=== PATIENT | female | born 1970 | race Caucasian/White ===

== ENCOUNTER → 2017-05-10 16:46 | Outpatient (CLI) | payer OTHER, SELFPAY ==
--- NOTE | 2017-05-10 16:55 | XR_ITS ---
XR shoulder RT min 2V Ordering Physician: Bon Welch MD Patient Age: 46 years: Female HISTORY: ITS.REASON: RT. SHOULDER PAIN TECHNIQUE: 3 views right shoulder COMPARISON : FINDINGS Glenohumeral joint is intact. Humeral head and neck intact. AC joint intact with scant if any degenerative changes. No fracture nor dislocation. Right lung apex is clear. Right upper ribs satisfactory. IMPRESSION: --------- Right shoulder intact. No fracture nor dislocation
== END ==
PROVIDERS: PCP Family Medicine; Visit Provider Orthopaedic Surgery
DX: M25.511 Pain in right shoulder (principal)
CPT/HCPCS: 73030

== ENCOUNTER 2017-06-23 15:00 | Outpatient (RCR) | payer OTHER, SELFPAY ==
--- NOTE | 2017-06-06 18:25 | HMH.PTOPEV ---
Rehab Outpatient Evaluation Rehab OP Evaluation Start: 06/06/17 17:12 Freq: Status: Active Protocol: Document 06/06/17 17:12 GILBERT (Rec: 06/06/17 18:18 GILBERT [id number]) Electronically Signed By Natan Amin, PT 06/06/17 17:12 Outpatient Therapy Subjective History Subjective History Ms. Joel is a 46 year old female who presents to outpatient PT with reports of R shoulder pain. Signs and symptoms consistent with R RTC impingement syndrome. Pt. reported of slipping and hitting her R shoulder on the wall in the shower October, creating the pain. PMH include gallbladder sx. and a concussion in which she is prescribed topiramate. Pt. will benefit from skilled PT services on posutral correction, shoulder strengthening, scapular stabilization, and pain modulation modalities. Pt. goals are to return to PLOF. Chief Complaint Pain Symptom Type Sharp Stabbing Burning Symptoms Relieved By Rest/Positioning Heat Symptoms Aggravated By Physical Activity Lifting Prior Functional Limitations None Current Functional Limitations Reaching Housework Dressing Driving Sleeping Recreation Activity Symptom Description Activity Dependent Level of pain today (0-10) 0 Pain scale - at its best (0-10) 0 Pain scale - at its worst (0-10) 4 Shoulder/Elbow Eval Shoulder Objective Measurements Palpation Tenderness tenderness shoulder exam standard right tenderness over the SA bursa shoulder right exam standard Shoulder Palpation Findings Tenderness Shoulder Palpation Overall Comment +TTP R supraspinatus/ infraspinatus muscle belly/ tendon, R greater tubercle Posture Shoulder Posture Sitting Position (L) Rounded (R) Rounded (L) Forward (R) Forward (L) Elevated
== END 2017-06-23 15:01 | disposition home or self-care (01) ==
LOC: PT 15:00
PROVIDERS: Family Provider Family Medicine; PCP Family Medicine; Visit Provider Orthopaedic Surgery
DX: M75.41 Impingement syndrome of right shoulder (principal)
CPT/HCPCS: 97010; 97012; 97014; 97016; 97033; 97035; 97110; 97140; G0283

== ENCOUNTER → 2019-07-22 14:12 | Outpatient (CLI) | payer OTHER, SELFPAY ==
--- NOTE | 2019-07-22 14:31 | MR_ITS ---
PROCEDURE: MR HEAD/BRAIN WO/W CON CLINICAL INDICATION: f/u from prior abnormal imaging Headaches, visual change, insomnia, weight gain Follow-up pituitary lesion COMPARISON: [facility] MRI-BRAIN W/WO from 03/29/2017 TECHNIQUE: Routine multiplanar multi echo sequences are performed without and with gadolinium enhancement. FINDINGS: No midline shift, mass effect, intracranial hemorrhage, or hydrocephalus is evident. No abnormal enhancing lesions are apparent.. No abnormal T2 white matter hyperintensities.. The hippocampal gyri and temporal horns have an unremarkable appearance. There remains a small cystic lesion in the left lobe of the pituitary gland measuring 4 mm transverse similar to the previous exam. Thin section pre and dynamic post enhanced images showing no other significant anomaly.. The cerebellopontine angles, cerebellum, and brainstem are unremarkable. No mastoid effusion or sinus air-fluid level. IMPRESSION: Stable MRI appearance of the brain. No change in the 4 mm cystic lesion in the left aspect of the pituitary gland. No acute finding Dictated by: Zeke Garcia MD 07/25/2019 13:41 Electronically signed by Zeke Garcia MD in [place] 07/25/2019 13:41
[2019-07-22 14:33] LABS: Chloride 105 mmol/L (98-107); Potassium 4.5 mmoL/L (3.5-5.1); Sodium 142 mmol/L (136-145)
[2019-07-22 14:36] LABS: Blood Urea Nitrogen 15 mg/dl (7-17); Estimated Glomerular Filt Rate 76 ml/min (>60); GFR (African American) 92 ML/MIN (>60)
[2019-07-22 14:37] LABS: Anion Gap 11.5 mEq/L (5-15); Calcium 9.5 mg/dl (8.4-10.2); Carbon Dioxide 30 mmol/L (22.0-30.0); Glucose 93 mg/dl (74-100)
[2019-07-22 15:08] LABS: Thyroid Stimulating Hormone 1.05 uIU/mL (0.465-4.68)
== END ==
PROVIDERS: PCP Family Medicine; Visit Provider Specialist
DX: E23.7 Disorder of pituitary gland, unspecified (principal); G43.909 Migraine, unspecified, not intractable, without status migrainosus; G47.00 Insomnia, unspecified; G47.19 Other hypersomnia; H53.9 Unspecified visual disturbance; R42 Dizziness and giddiness; R63.5 Abnormal weight gain
CPT/HCPCS: 36415; 70553; 80048; 84146; 84443; A9576

== ENCOUNTER → 2019-07-25 15:52 | Outpatient (CLI) | payer OTHER, SELFPAY | PROVIDERS: Visit Provider Specialist | DX: G47.19 Other hypersomnia (principal); G47.00 Insomnia, unspecified; G43.919 Migraine, unspecified, intractable, without status migrainosus; R63.5 Abnormal weight gain; R42 Dizziness and giddiness; E23.7 Disorder of pituitary gland, unspecified; H53.9 Unspecified visual disturbance; G47.33 Obstructive sleep apnea (adult) (pediatric) | CPT/HCPCS: G0399 ==

== ENCOUNTER → 2021-03-15 06:49 | Outpatient (CLI) | payer SELFPAY ==
--- NOTE | 2021-03-15 07:02 | CT_ITS ---
PROCEDURE: CT HEART W CALCIUM SCORE CLINICAL HISTORY: FAMILY HX COMPARISON: CT ABDPELW CT ABD PELVIS W/ CONTRAST from 07/10/2016 TECHNIQUE: Axial images obtained with sagittal and coronal reformats. All CT scans at the facility use one or more dose reduction, viz: automated exposure control, ma/kV adjustment per patient size (including targeted exams where dose is matched to indication, i.e. head), or iterative reconstruction technique. FINDINGS: The coronary artery calcium score 0 . No identifiable calcific atherosclerotic plaque with very low cardiovascular disease risk. Calcified mediastinal and right nodes. Calcified granuloma middle there is an 8 5 mm nodular density in the region of the right minor fissure. 5 mm right middle lobe nodule which is noncalcified. IMPRESSION: No identifiable calcific atherosclerotic plaque with very low cardiovascular disease risk Old granulomatous disease. Right minor fissure nodule may represent a fissural lymph node. Six-month follow-up chest CT suggested to confirm stability. Dictated by: Zeke Garcia MD 03/15/2021 16:16 Zeke Garcia MD in [place] 03/15/2021 16:16
== END ==
PROVIDERS: Visit Provider Internal Medicine
DX: Z13.6 Encounter for screening for cardiovascular disorders (principal)
CPT/HCPCS: 75571

== ENCOUNTER → 2022-03-14 08:58 | Outpatient (CLI) | payer OTHER, SELFPAY ==
[2022-03-14 10:42] LABS: Anion Gap 14.4 mEq/L (5-15); Blood Urea Nitrogen 13 mg/dl (7-17); Calcium 9.4 mg/dl (8.4-10.2); Carbon Dioxide 28 mmol/L (22.0-30.0); Chloride 104 mmol/L (98-107); Estimated Glomerular Filt Rate 75 ml/min (>60); GFR (African American) 91 ML/MIN (>60); Glucose 114 mg/dl (74-100); Potassium 4.4 mmoL/L (3.5-5.1); Sodium 142 mmol/L (136-145)
[2022-03-14 11:12] LABS: Thyroid Stimulating Hormone 1.11 uIU/mL (0.465-4.68)
[2022-03-15 08:47] LABS: Prolactin 6.1 ng/mL (4.8-23.3)
== END ==
PROVIDERS: PCP Internal Medicine; Visit Provider Nurse Practitioner Family
DX: E23.7 Disorder of pituitary gland, unspecified (principal)
CPT/HCPCS: 36415; 80048; 84146; 84443

== ENCOUNTER → 2023-03-29 12:59 | Outpatient (CLI) | payer OTHER, SELFPAY ==
--- NOTE | 2023-03-29 13:00 | CA_ITS ---
APPROVED REPORT EXAM: Comprehensive 2D, Doppler, and color-flow Echocardiogram Project Manager Finance: SHANE Wong, RVS Ht: 5 ft 7 in Wt: 218lbs BSA: 2.10 BP: 144/80 mmHg Indications: SOA, CP, HTN 2D Dimensions LA Volume 29.40 mL LA Volume Index 13.70 mL/m2 (M/F) 16-34 M-Mode Dimensions RVDd 1.48 cm (0.9-2.6) LA Diam 3.23 cm (1.9-4.0) LVDd 3.62 cm (3.5-5.7) LVDs 2.28 cm (3.5-5.7) IVSd 1.04 cm (0.6-1.1) PWd 0.91 cm (0.6-1.1) EF (Teich) 67.90% EPSs 0.37 cm FS 37.00% EDV (Teich) 55.20 mL TAPSE 2.02 (<1.7) ESV (Teich) 17.70 mL LV Diastology E Decel Time 230 (160-240 msec) E/A Ratio 0.76 MED A' 11.70 cm/s LAT A' 12.50 cm/s Aortic Valve AoV Peak Kailash. 129.0 (50-130 cm/s) AO Peak GR. 6.70 mmHg AO Mean GR. 3.30 (<5 mmHg) AO VTI 27.2 (18-25 cm) Mitral Valve MV A Velocity 79.0 (40-130 cm/s) E/A Ratio 0.76 Pulmonary Valve MI End VMAX 165.0 cm/s Tricuspid Valve TR P. Velocity 187.00 cm/s RAP Estimate 10.00 mmHg RVSP 23.90 mmHg Left Ventricle The left ventricle is normal size. The left ventricular systolic function is normal. The left ventricular ejection fraction is within the normal range. There is increased LV wall thickness. Transmitral Doppler flow pattern suggests impaired LV relaxation. LVEF is 55%. Right Ventricle The right ventricle is normal size. The right ventricular systolic function is normal. Atria The left atrium size is normal. The right atrium size is normal. Aortic Valve The aortic valve is mildly thickened. There is no aortic valvular stenosis. No aortic regurgitation is present. Mitral Valve The mitral valve leaflets are mildly thickened. No evidence of mitral valve stenosis. Trace mitral regurgitation. Tricuspid Valve The tricuspid valve leaflets are thin and pliable. Trace tricuspid regurgitation. There is insufficient TR jet to estimate RVSP. Pulmonic Valve The pulmonary valve is normal in structure. Trace pulmonic regurgitation. Great Vessels The aortic root is normal in size. The ascending aorta is normal in size. IVC is normal in size and collapses >50% with inspiration. Pericardium There is no pericardial effusion. Other Information Study Quality: Adequate Conclusion Normal biventricular systolic function. No significant valvular stenosis or regurgitation. Electronically signed by : Alexia Urrutia MD 04/02/2023 23:21:08
--- NOTE | 2023-03-29 13:00 | XR_ITS ---
FINAL REPORT TECHNIQUE: Chest PA & Lateral CLINICAL HISTORY: Shortness of breath, Palpitations COMPARISON: None FINDINGS: 2 views of the chest were performed. The heart size is normal. The mediastinum is within normal limits. There is no acute cardiopulmonary process. There are no pleural effusions. There is no pneumothorax. The bony thorax appears intact. IMPRESSION: No acute cardiopulmonary process. Reviewed, Interpreted and Dictated by Memo Ascencio MD Transcribed by Tawanna Gallegos Authenticated and [facility]
== END ==
PROVIDERS: PCP Internal Medicine; Visit Provider Physician Assistant
DX: R06.09 Other forms of dyspnea (principal); R00.2 Palpitations; R03.0 Elevated blood-pressure reading, without diagnosis of hypertension
CPT/HCPCS: 71046; 93306